=== PATIENT | male | born 1950 | race Two or more races ===

== ENCOUNTER 2016-11-07 11:32 | Day surgery (SDC) | payer OTHER ==
[~2016-11-07] VITALS: Ht 170.2 cm; Wt 78.5 kg
[2016-11-07] MEDS ORDERED: QUIN20TA23 PO (12:25)
[2016-11-07] MEDS ORDERED: ASPI81TA3 PO (12:25)
[2016-11-07] MEDS ORDERED: GLIP-95 PO (12:25)
[2016-11-07] MEDS ORDERED: LORA10TA3 PO (12:25)
[2016-11-07] MEDS ORDERED: IBUP-1542 PO (12:25)
[2016-11-07 12:27] VITALS: Ht 170.2 cm; Wt 78.5 kg
[2016-11-07 13:04] VITALS: BP 125/65; PULSE 62; RESP 16
[2016-11-07] MEDS ORDERED: FENTAnyl 50 MCG/ML VIAL ONE (14:34)
[2016-11-07] MEDS ORDERED: MIDAZOLAM 1 MG/ML 2 ML INJ ONE (14:34)
[2016-11-07 15:01] VITALS: BP 132/82; RESP 20
--- NOTE | 2016-11-07 16:00 | GILP ---
DATE OF PROCEDURE: 11/07/2016 NAME OF PROCEDURE: Colonoscopy. SURGEON: Maico Dean MD PREOPERATIVE DIAGNOSIS: Screening colonoscopy. POSTOPERATIVE DIAGNOSES: 1. Colonoscopy all the way to the cecum. 2. Poor prep making the exam somewhat suboptimal. 3. Internal hemorrhoids. 4. No gross neoplasm was identified. INDICATION FOR THE PROCEDURE: Mr. Alexi Yusuf is a 66-year-old male patient who was scheduled for s creening colonoscopy. The procedure and possible complications were well explained to the patient. He understood and cons ented to the procedure. DESCRIPTION OF PROCEDURE: Under the influence of fentanyl and Versed, the colonoscope was carefully introduced in the rectum and under direct vision, it was advanced all the way to the cecum. FINDINGS: The patient had poor prep making the exam somewhat suboptimal. The patient was noted to have internal hemorrhoids. No colon neoplasm was identified. He tolerated the procedure very well and there was no complication from the procedure. At the end o f the procedure, he was awake with stable vital signs and he was discharged home to the care of his family. IMPRESSION: 1. Colonoscopy all the way to the cecum. 2. Poor prep making the exam somewhat suboptimal. 3. No gross neoplasm was identified. 4. Internal hemorrhoids. PLAN: Because of the poor prep and suboptimal nature of the examination, we would recommend screeni ng colonoscopy in 2 to 3 years. Dictated By: MAICO RAMACHANDRAN/MATEO Conf#: [id number] DID#: [id number]
== END 2016-11-07 15:38 | disposition home or self-care (01) ==
LOC: GIL 11:32
PROVIDERS: ATTEND Internal Medicine Gastroenterology
DX: Z12.11 Encounter for screening for malignant neoplasm of colon (principal); K64.8 Other hemorrhoids; E11.9 Type 2 diabetes mellitus without complications; I10 Essential (primary) hypertension
CPT/HCPCS: 43239; 82962; J2250; J3010; Z7610